=== PATIENT | female | born 1955 | race Caucasian/White ===

== ENCOUNTER 2021-09-07 13:30 | Emergency (ER) | payer MEDICARE, BC, SELFPAY ==
[2021-09-07 13:42] VITALS: BP 160/90; PULSE 84; RESP 16; TEMP 36.6; O2SAT 99
--- NOTE | 2021-09-07 16:05 | ED.LOWEXIN ---
HPI - Extremity Injury (Lower) General Chief Complaint: Extremity Injury, Lower Stated Complaint: Left Leg Injury Time Seen by Provider: 09/07/21 16:05 Source: patient Mode of arrival: ambulatory Limitations: no limitations History of Present Illness HPI Narrative: 66-year-old female presented for complaint of left lower leg pain over the past 3 days. Pain starts mid thigh to calf, is described as dull and tingling sensation in the calf. Worse with weight bearing. No redness, warmth, or swelling to the left calf. Denies known injury. She states she has been unpacking boxes over the past month. Taking ibuprofen which helps for about 4 hours. Denies low back pain or hip pain. Related Data Home Medications Medication Instructions Recorded Confirmed atorvastatin 40 mg tablet 40 mg PO DAILY tablet 05/10/19 09/07/21 cholecalciferol (vitamin D3) 25 2,000 unit PO DAILY cap 05/10/19 09/07/21 mcg (1,000 unit) capsule fluoxetine 20 mg capsule 20 mg PO DAILY cap 05/10/19 09/07/21 aspirin 81 mg tablet,delayed 81 mg PO DAILY 08/02/20 09/07/21 release Allergies Allergy/AdvReac Type Severity Reaction Status Date / Time No Known Allergies Allergy Verified 09/07/21 15:54 Review of Systems Review of Systems: CONSTITUTIONAL: Denies body aches, fever, chills EYES: Denies visual changes ENT: Denies rhinorrhea, congestion CARDIOVASCULAR: Denies chest pain, palpitations, or edema. RESPIRATORY: Denies cough or dyspnea. GASTROINTESTINAL: Denies abdominal pain, nausea, vomiting, or diarrhea. SKIN: Denies rash, itching, or wounds. MUSCULOSKELETAL: Reports left leg pain NEUROLOGIC: Denies headache or weakness to extremities PSYCH: Denies depression or anxiety. All systems reviewed & are unremarkable except as noted in HPI and below PMFSH Past Medical History Medical History (Updated 09/07/21 @ 16:21 by Crystal Hamilton APRN) High cholesterol Psoriasis Family History Family History Mother Family history of chronic obstructive pulmonary disease Family history of malignant neoplasm of breast in first degree relative Sibling Family history of lung cancer Social History Social History Smoking status: Never smoker Alcohol intake: never Comments At time of signature, I have reviewed and agree with nursing past medical, surgical, social and family history unless otherwise noted. Please see nursing chart for further information. There is no relevant family history pertinent to the presenting complaint Exam Narrative: GENERAL: Well-appearing HEAD: Normocephalic, atraumatic. EYES: PERRLA, conjunctivae clear NECK: Supple. CHEST: Speaks in full sentences. No respiratory distress. HEART: Regular rate and rhythm. Normal and equal peripheral pulses. EXTREMITIES: LLE has normal strength and sensation, normal range of motion with flexion/extension/rotation, endorses pain with ambulation and palpation over lateral calf. No edema or ecchymosis, No point tenderness. No open wounds, skin tenting, or obvious deformity; pulse palpable and equal bilaterally, skin warm, dry, pink. Capillary refill less than 3 seconds. SKIN: Warm, dry, no rash. NEURO: Alert and oriented x3. PSYCH: Normal mood and affect Course Course Emergency Course: Patient is aware of diagnosis, understands and agrees to treatment plan. Anticipatory guidance given. Patient agrees to follow-up as directed and is aware of reasons to seek care at the emergency department. Portions of this record may have been created with voice recognition software Level of Care: Express Care Visit Vital Signs Vital signs: Vital Signs Temperature 97.8 F 09/07/21 13:42 Pulse Rate 84 09/07/21 13:42 Respiratory Rate 16 09/07/21 13:42 Blood Pressure 160/90 H 09/07/21 13:42 Pulse Oximetry 99 09/07/21 13:42 Temperature 97.8 F 09/07/21 13:42
== END 2021-09-07 16:25 | disposition home or self-care (01) ==
PROVIDERS: Emergency Provider Nurse Practitioner Family
DX: M79.662 Pain in left lower leg (principal); E78.00 Pure hypercholesterolemia, unspecified; Z79.82 Long term (current) use of aspirin
CPT/HCPCS: 99213; G0463

== ENCOUNTER 2023-04-27 12:51 | Emergency (ER) | payer MEDICARE, BC, SELFPAY ==
[2023-04-27 13:14] VITALS: BP 132/85; PULSE 68; RESP 20; TEMP 36.8; O2SAT 98
--- NOTE | 2023-04-27 14:45 | ED.GENADULT ---
HPI - General Adult General Chief complaint: Upper Respiratory Infection Stated complaint: headache/cough/burning chest Source: patient Mode of arrival: ambulatory Limitations: no limitations History of Present Illness HPI narrative: Patient presents for evaluation of sick symptoms for last 2 days. Symptoms include headache, sinus congestion, sore throat only when coughing, a nonproductive cough and a burning sensation in her chest wall she coughs. No fever, chills, nausea, vomiting or diarrhea. No recent sick contacts to her knowledge. She has tried ibuprofen for her symptoms. She does not smoke. She had COVID twice in the past and current symptoms do not feel consistent with her previous bouts of COVID. Related Data Home Medications Medication Instructions Recorded Confirmed atorvastatin 40 mg tablet 40 mg PO DAILY 05/10/19 04/27/23 cholecalciferol (vitamin D3) 25 2,000 unit PO DAILY 05/10/19 04/27/23 mcg (1,000 unit) capsule fluoxetine 20 mg capsule 20 mg PO DAILY 05/10/19 04/27/23 aspirin 81 mg tablet,delayed 81 mg PO DAILY 08/02/20 04/27/23 release (Adult Low Dose Aspirin) Allergies Allergy/AdvReac Type Severity Reaction Status Date / Time No Known Allergies Allergy Verified 04/27/23 13:29 Review of Systems Review of Systems: CONSTITUTIONAL: Denies fever, chills, or sweats. EYES: Denies visual changes, redness, or discharge. ENT: Reports sinus congestion, sore throat only when coughing. Denies otalgia or sinus drainage. CARDIOVASCULAR: Denies chest pain, palpitations, or edema. RESPIRATORY: Reports cough and pleuritic burning in her chest. Denies chest pain per se. Denies shortness of breath. GASTROINTESTINAL: Denies abdominal pain, nausea, vomiting, or diarrhea. GENITOURINARY: Denies dysuria or hematuria. SKIN: Denies rash or itching. MUSCULOSKELETAL: Denies back pain, joint pain, or myalgia. NEUROLOGIC: Reports headache. numbness, dizziness, or weakness. PSYCHIATRIC: Denies anxiety or depression. [facility] Past Medical History Medical History (Updated 04/27/23 @ 15:53 by Brice Ospina, CAROLINE, ) High cholesterol Psoriasis Surgical History Surgical History History of cholecystectomy History of hysterectomy Family History Family History Mother Family history of chronic obstructive pulmonary disease Family history of malignant neoplasm of breast in first degree relative Sibling Family history of lung cancer Social History Social History Smoking status: Never smoker Substance use: never Gender identity (if verbalized by the patient): Female Spiritual care concerns: No Exam Narrative: GENERAL: Well-appearing, well-nourished, and in no acute distress. HEAD: Normocephalic, atraumatic. EYES: PERRLA and EOMI. ENT: Nares clear, no rhinorrhea or epistaxis. Mucous membranes moist. Oropharynx without tonsillar hypertrophy exudate or other lesions. Bilateral TMs pearly cochran nonbulging NECK: Supple. No adenopathy or masses. No carotid bruits or JVD CHEST: Clear to auscultation. No respiratory distress. No wheezes rales or rhonchi HEART: Regular rate and rhythm. No murmur heard. Normal peripheral pulses. ABDOMEN: Soft, nontender, nondistended, normal active bowel sounds. EXTREMITIES: Normal range of motion. No edema. SKIN: Warm, dry, no rash. NEURO: No focal deficits. Alert and oriented x3. PSYCH: Normal mood and affect. Course Course Emergency Course: This is a 68-year-old female who presented for evaluation of sick symptoms. COVID and flu were negative. Strep positive. Will treat with amoxicillin. Increase hydration. Follow up with primary provider. [id number] agents for symptom management. Go to the ER for worsening symptoms. Patient in agreement with plan of care. Level
== END 2023-04-27 16:01 | disposition home or self-care (01) ==
PROVIDERS: Emergency Provider Nurse Practitioner; PCP Nurse Practitioner Family
DX: J02.0 Streptococcal pharyngitis (principal); Z20.822 Contact with and (suspected) exposure to COVID-19; E78.00 Pure hypercholesterolemia, unspecified; L40.9 Psoriasis, unspecified; Z79.82 Long term (current) use of aspirin
CPT/HCPCS: 87426; 87804; 87880; 99213; C9803; G0463

== ENCOUNTER 2024-07-28 14:00 | Emergency (ER) | payer MEDICARE, SELFPAY ==
--- NOTE | ~2024-07-28 | XR_ITS ---
EXAMINATION: XR chest 2V DATE: 07/28/2024 16:28 INDICATION: Cough and shortness of breath. TECHNIQUE: Frontal and lateral views of the chest were obtained. COMPARISON: None. FINDINGS: There is mild atelectasis in lingula. No pleural effusion or pneumothorax. The heart size i s normal. Surgical clips in the right upper quadrant are likely from cholecystectomy. IMPRESSION: 1. Mild atelectasis in lingula. Reviewed, dictated and finalized at location A. RTAINMENT REPORTER
[2024-07-28 14:14] VITALS: BP 137/57; PULSE 90; RESP 20; TEMP 37.9; O2SAT 98
--- OUTSIDE RECORDS SUMMARY | 2024-07-28 14:57 | XMS_ITS | Continuity of Care Document ---
Author Organization [facility] Address [address] [place] [phone] Phone Care Team Providers Care Photo Booth Operator Name Role Phone Shila Berg Unavailable Unavailable Allergies, Adverse Reactions, Alerts Substance Reaction Status Criticality No Known allergies Medications Medication Instructions Dosage Effective Dates (start - stop) Status Comments Lipitor 40 mg tablet take 1 tablet by or al route every day 40 MG - Active Aspir-81 81 mg tablet,delayed release take 1 tablet by oral route every day - Active Prozac 20 mg capsule take 1 capsule by o ral route every day in the morning 20 MG - Active Procedures Procedure Date Refraction New Comprehensive Exam Advance Directives Directive Yes / No Effective Date File Name No Information Encounters Encounter Description Practice Location Reason(s) For Visit Diagnoses Date Provider Providers Copied on Encounter [facility], [address] [place], [place], [id number] , tel:[phone] [facility] MD decreased vision (chief complaint) blurry vision (chief complaint) PresbyopiaHordeolum internum Aug- [address] [place], [place], [id number] , [place]. tel:[phone] Referring Provider: Bobo Adler, [address] [facility], [place], [address]. tel:[phone] Family History Family Member Type Diagnosis Age At Onset Father Problem (finding) Cataracts Mother Problem (finding) Cancer Father Problem (finding) Diabetes mellitus Mother Problem (finding) Macular Degeneration Payers Payer name Insurance type Covered republican ID Authoriza tion(s) No Information Social History Type Description Quantity Date Captured Comments Alcohol Use Details 1 drink rarely Caffeine Use Details No Tobacco Use Status No Information Smoking Status Never smoker Sex Female Chief Complaint And Reason For Visit From encounter dated '09/16/2013 16:00'. decreased vision (chief complaint) blurry vision (chief complaint) Plan Of Treatment Date Type Action Status Goal Tobacco cessation counseling completed History Of Present Illness Encounter Date Complaint History Of Prese nt Illness No Information Instructions Date Instruction Additional Infor carlee - Return in 1 year w mara Berg, OD for Complete Exam. Related to Presbyopia Presbyopia s/p LASIK OU / LASIK enhance OD - New glasses Rx dispensed. Related to Presbyopia Meibomitis Gland Dys function OU--mild - AT's prn OU. 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
--- OUTSIDE RECORDS SUMMARY | 2024-07-28 14:57 | XMS_ITS | Encounter Summary ---
Author Organization [facility] Healthcare Address [address] [place] [address] Care Team Providers Care Banker Mason Name Role Phone Rivera Park MD Primary Care Provider [phone] Encounter Details Date Type Department Care Team (Late st Contact Info) Description 07/27/2024 11:45 AM NATIONAL SALES DIRECTOR Lab [facility] Laboratory [address] [place] [phone] Encounter for Medicare annual wellness exam Social History Tobacco Use Types Packs/Day Years Used Date Smoking Tobacco: Never AUDIT-C Answer Date Recorded Q1: How often do you have a drink containing alc ohol? Monthly or less 07/28/2023 Q2: How many drinks containi ng alcohol do you have on a typical day when you are drinking? 1 or 2 07/28/2023 Q3: How often do you have si x or more drinks on one occasion? Never 07/28/2023 PHQ-2 Answer Date Recorded PHQ-2 Total Score (If total score is 3 or more points, staff should administer the PHQ-9) 0 07/28/2023 Personal Safety Answer Date Recorded Getting School Help Needed Not on file 01/12 Comments No Sex and Gender Information Value Date Recorded Sex Assigned at Not on file Legal Sex Female 2:29 PM NATIONAL SALES DIRECTOR Gender Identity Not on file Sexual Orientation Not on file documented as of this encounter Plan of Treatment Not on file documented as of this encounter Procedures Procedure Name Priority Date/Time Associated Diagnosis Comments EGFR Routine 07/27/2024 11:40 AM NATIONAL SALES DIRECTOR Encounter for Medicare annual wellness exam DIFFERENTIAL AUTO Routine 07/27/2024 11: 40 AM NATIONAL SALES DIRECTOR Encounter for Medicare annual wellness exam CBC WITH AUTO DIFFERENTIAL Routine 07/27/2024 11:40 AM NATIONAL SALES DIRECTOR Encounter for Medicare annual wellness exam LIPID PANEL Routine 07/27/2024 11:40 AM NATIONAL SALES DIRECTOR Encounter for Medicare annual wellness exam COMPREHENSIVE METABOLIC PANEL Routine 07/27/2024 11:40 AM NATIONAL SALES DIRECTOR Encounter for Medicare annual wellness exam documented in this encounter Results * eGFR (07/27/2024 11:40 AM NATIONAL SALES DIRECTOR) eGFR 67 >=60 mL/min/1. 73 m2 Comment: Interpretive Data Reference Interval Normal >/= 90 mL/min/1.73m2 Mildly decreased* 60 - 89 mL/min/1.73m2 Mildly to moderately decreased 45 - 59 mL/min/1.73m2 Moderately to severely decreased 30 - 44 mL/min/1.73m2 Severely decreased 15 - 29 mL/min/1.73m2 Kidney Failure < 15 mL/min/1.73m2 *Relative to young adult level Estimated glomerular filtration rate is determined by the 2020 CKD-EPI equation recommended by the National Kidney Foundation (A Unifying Approach to GFR Estimation: Recommendations of the NKF-ASK Task Force on Reassessing the Inclusion of Race in Diagnosing Kidney Disease, JASN 2020). The CKD-EPI equation should not be used for patients with unstable renal function and has not been validated in children and those over 70. Current interpretive data was last reviewed 2021. Testing performed by: [facility], [address] [place] [address], [place]., [address] Blood 07/27/2024 11:4 0 AM NATIONAL SALES DIRECTOR 07/27/2024 5:45 PM NATIONAL SALES DIRECTOR us Blanca Rico NP LAB BLOOD ORDERABLES Final Result [facility] [place] [address] [facility] ([place], [place]) Department [place] [address] * Differential, auto (07/27/2024 11:40 AM NATIONAL SALES DIRECTOR) Neutrophil abs 4.5 1.5 - 6.5 K/cumm Comment:Testing performed by : [facility], [address] [place] [address]., [address] Imm gran abs 0.0 0.0 - 0.1 K/cumm [facility] ([place]) Comment:Testing performed by : [address], [address] Lymphocyte abs 2.3 0.8 - 3.3 K/cumm [facility] ([place]) Comment:Testing performed by : [facility], [address] [place] [address], [address] Monocyte abs 0.6 0.2 - 0.8 K/cumm [facility] ([place]) Comment:Testing performed by : [address], [address] Eosinophil abs 0.2 0.0 - 0.5 K/cumm [facility] ([place]) Comment:Testing performed by : [address], [address] Basophil abs 0.1 0.0 - 0.1 K/cumm [facility] ([place]) Comment:Testing performed by : [address], [address] Neutrophil pct 59.5 % [facility] ([place]) Comment: Interpretive Data Percent cell count reference ranges are not reported, since discordance with absolute values may lead to misinterpretation of CBC data. Current Interpretive Data was last revised on 2017. Testing performed by: [address], [address] Imm gran pct 0.3 % [facility] ([place]) Comment: Interpretive Data Percent cell count reference ranges are not reported, since discordance with absolute values may lead to misinterpretation of CBC data. Current Interpretive Data was last revised on 2017. Testing performed by: [address], [address] Lymphocyte pct 29.7 % [facility] ([place]) Comment: Interpretive Data Percent cell count reference ranges are not reported, since discordance with absolute values may lead to misinterpretation of CBC data. Current Interpretive Data was last revised on 2017. Testing performed by: [facility], [address] [place] [address]., [address] Monocyte pct 7.6 % [facility] ([place]) Comment: Interpretive Data Percent cell count reference ranges are not reported, since discordance with absolute values may lead to misinterpretation of CBC data. Current Interpretive Data was last revised on 2017. Testing performed by: [facility], [address] [place] [address]., [address] Eosinophil pct 2.2 % [facility] ([place]) Comment: Interpretive Data Percent cell count reference ranges are not reported, since discordance with absolute values may lead to misinterpretation of CBC data. Current Interpretive Data was last revised on 2017. Testing performed by: [facility], [address] [place] [address]., [address] Basophil pct 0.7 % [facility] ([place]) Comment: Interpretive Data Percent cell count reference ranges are not reported, since discordance with absolute values may lead to misinterpretation of CBC data. Current Interpretive Data was last revised on 2017. Testing performed by: [address] [address] Blood 07/27/2024 11:4 0 AM NATIONAL SALES DIRECTOR 07/27/2024 5:28 PM NATIONAL SALES DIRECTOR us Blanca Rico HUB LEAD LAB BLOOD ORDERABLES Final Result [facility] ([place]) 1 [facility] Department [place] [address] * CBC with auto differential (07/27/2024 11:40 AM NATIONAL SALES DIRECTOR) WBC 7.6 3.8 - 9.9 K/cumm Comment:Testing performed by : [address] [address] Hgb 14.1 11.9 - 15.5 g/dL [facility] ([place]) Comment:Testing performed by : [address], [address] Hct 43.3 35.6 - 45.5 % [facility] ([place]) Comment:Testing performed by : [facility], [address] [place] [address], [address] Plt 226 150 - 400 K/cumm [facility] ([place]) Comment:Testing performed by : [address], [address] MPV 10.5 9.1 - 12.3 fL [facility] ([place]) Comment:Testing performed by : [address], [address] RBC 4.52 3.90 - 5.20 M/cumm [facility] ([place]) Comment:Testing performed by : [address], [address] MCV 95.8 81.3 - 96.4 fL [facility] ([place]) Comment:Testing performed by : [address], [address] MCH 31.2 27.1 - 33.3 pg [facility] ([place]) Comment:Testing performed by : [address], [address] MCHC 32.6 32.3 - 35.7 g/dL [facility] ([place]) Comment:Testing performed by : [address], [address] RDW CV 12.3 11.1 - 14.9 % [facility] ([place]) Comment:Testing performed by : [address], [address] RDW SD 42.5 35.7 - 48.1 fL [facility] ([place]) Comment:Testing performed by : [address], [address] NRBC abs 0.00 0.00 - 0.01 K/cumm [facility] ([place]) Comment:Testing performed by : [address], [address] Blood 07/27/2024 11:4 0 AM NATIONAL SALES DIRECTOR 07/27/2024 5:28 PM NATIONAL SALES DIRECTOR Blanca Rico HUB LEAD LAB BLOOD ORDERABLES Final Result [facility] ([place] 1 [facility] Department [place] [address] * Comprehensive metabolic panel (07/27/2024 11:40 AM NATIONAL SALES DIRECTOR) Sodium 142 135 - 145 mmol/L Comment:Testing performed by : [facility], [address] [place] [address]., [address] Potassium, pl 4.4 3.3 - 4.9 mmol/L [facility] ([place]) Comment:Testing performed by : [facility], [address] [place] [address]., [address] Chloride 102 97 - 110 mmol/L [facility] ([place]) Comment:Testing performed by : [facility], [address] [place] [address]., [address] CO2 27 22 - 32 mmol/L [facility] ([place]) Comment:Testing performed by : [address], [address] Anion gap 13 2 - 15 mmol/L [facility] ([place]) Comment:Testing performed by : [facility], [address] [place] [address], [address] BUN 15 6 - 25 mg/dL [facility] ([place]) Comment:Testing performed by : [facility], [address] [place] [address]., [address] Creatinine 0.92 0.60 - 1.10 mg/dL [facility] ([place]) Comment:Testing performed by : [address], [address] Glucose 85 70 - 199 mg/dL [facility] ([place]) Comment: Interpretive Data Fasting glucose >/= 126 mg/dl is diagnostic for diabetes. Fasting is defined as no caloric intake for at least 8 hours. Fasting glucose between 100 mg/dl to 125 mg/dl is diagnostic of prediabetes. In a patient with classic symptoms of hyperglycemia or hyperglycemic crisis, a random glucose >/= 200 mg/dl is diagnostic for diabetes. In the absence of unequivocal hyperglycemia, results should be confirmed by repeat testing. The classification and Diagnosis of Diabetes Diabetes Care 202; 46: S19-S40. Current interpretive data was last revised 2022. Testing performed by: [address], [address] Calcium 9.7 8.5 - 10.3 mg/dL [facility] ([place]) Comment:Testing performed by : [facility], [address] [place] [address], [address] Bilirubin, total 0.6 0.1 - 1.2 mg/dL [facility] ([place]) Comment:Testing performed by : [facility], [address] [place] [address], [address] Protein, pl 7.0 6.5 - 8.5 g/dL [facility] ([place]) Comment:Testing performed by : [facility], [address] [place] [address], [address] Albumin 4.2 3.5 - 5.0 g/dL [facility] ([place]) Comment:Testing performed by : [address], [address] Alk phos 130 40 - 130 Units/L [facility] ([place]) Comment:Testing performed by : [address], [address] ALT 20 7 - 45 Units/L [facility] ([place]) Comment:Testing performed by : [facility], [address] [place] [address], [address] AST 30 10 - 45 Units/L [facility] ([place]) Comment:Testing performed by : [address], [address] Blood 07/27/2024 11:4 0 AM NATIONAL SALES DIRECTOR 07/27/2024 5:28 PM NATIONAL SALES DIRECTOR Blanca Rico NP LAB BLOOD ORDERABLES Final Result [facility] ([place]) 1 [facility] Department [place] [address] * Lipid panel (07/27/2024 11:40 AM NATIONAL SALES DIRECTOR) Cholesterol 186 30 - 199 mg/dL Comment: Interpretive Data Ages < or = 19 years Acceptable: <170 mg/dL Borderline high: 170-199 mg/dL High: >or= 200 mg/dL Ages > or = 20 years Desirable: <200 mg/dL Borderline high: 200-239 mg/dL High: >or= 240 mg/dL Literature References: 1. Expert Panel on Integrated Guidelines for Cardiovascular Health and Risk Reduction in Children and Adolescents. Pediatrics 2011;128:S213 2. NCEP Expert Panel. Circulation 2004;110:227 Current Interpretive Data was last revised on 2018. Testing performed by: [facility], [address] [place] [address]., [address] Triglycerides 131 <=149 mg/dL [facility] ([place]) Comment: Interpretive Data Ages < or = 9 years Acceptable: <75 mg/dL Borderline high: 75-99 mg/dL High: >or= 100 mg/dL Ages 10 to 20 years Acceptable: <90 mg/dL Borderline high: 90-129 mg/dL High: >or= 130 mg/dL Ages > or = 20 years Desirable: <150 mg/dL Borderline high: 150-199 mg/dL High: 200-499 mg/dL Very high: >or= 499 mg/dL Literature References: 1. Expert Panel on Integrated Guidelines for Cardiovascular Health and Risk Reduction in Children and Adolescents. Pediatrics 2011;128:S213 2. NCEP Expert Panel. Circulation 2004;110:227 Current Interpretive Data was last revised on 2018. Testing performed by: [facility], [address] [place] [address]., [address] HDL 60 >=40 mg/dL [facility] ([place]) Comment: Interpretive Data Ages < or = 19 years Acceptable: >45 mg/dL Borderline low: 40-45 mg/dL Low: <40 mg/dL Ages > or = 20 years Desirable: >or= 60 mg/dL Low: <40 mg/dL Literature References: 1. Expert Panel on Integrated Guidelines for Cardiovascular Health and Risk Reduction in Children and Adolescents. Pediatrics 2011;128:S213 2. NCEP Expert Panel. Circulation 2004;110:227 Current Interpretive Data was last revised on 2018. Testing performed by: [facility], [address] [place] [address]., [address] LDL, calculated 103 <=129 mg/dL [facility] ([place]) Comment: Interpretive Data Ages < or = 19 years Acceptable: <110 mg/dL Borderline high: 110-129 mg/dL High: >or= 130 mg/dL Ages > or = 20 years Optimal: <100 mg/dL Near optimal: 100-129 mg/dL Borderline high: 130-159 mg/dL High: >160 mg/dL Calculated using the Tahir LDL-C estimating equation. This equation was implemented on 2024. Prior to this date LDL-C was estimated using the Friedewald equation. Literature References: 1. Expert Panel on Integrated Guidelines for Cardiovascular Health and Risk Reduction in Children and Adolescents. Pediatrics 2011;128:S213 2. NCEP Expert Panel. Circulation 2004;110:227 3. Tahir Martinez et al. ERICA Cardiol. 2020 October 21;5(5):540-548. doi: 10.1001/jamacardio.2020.0013 Current Interpretive Data was last revised on 2024. Testing performed by: [address] [address] Non-HDL Cholesterol 126 mg/dL [facility] ([place]) Comment: Interpretive Data Ages < or = 19 years Acceptable: <120 mg/dL Borderline high: 120-144 mg/dL High: >145 mg/dL Ages > or = 20 years When triglycerides are >200 mg/dL, Non-HDL cholesterol is a secondary target of therapy with treatment goals that are 30 mg/dL greater than the LDL cholesterol target. Literature References: 1. Expert Panel on Integrated Guidelines for Cardiovascular Health and Risk Reduction in Children and Adolescents. Pediatrics 2011;128:S213 2. NCEP Expert Panel. Circulation 2004;110:227 Current Interpretive Data was last revised on 2018. Testing performed by: [address] [address] Chol/HDL ratio 3 [facility] ([place]) Comment:Testing performed by : [facility], [address] [place] [address]., [address] Blood 07/27/2024 11:4 0 AM NATIONAL SALES DIRECTOR 07/27/2024 5:28 PM NATIONAL SALES DIRECTOR us Blanca Rico NP LAB BLOOD ORDERABLES Final Result [facility] ([place]) 1 [facility] Department [place] [address] documented in this encounter Visit Diagnoses Diagnosis Encounter for Medicare annual wellness exam documented in this encounter Care Teams Banker Mason Relationship Specialty Start Date End Date Rivera Park MD [address] [place] [address] PCP - General Family Medicine 11/19/22 documented as of this encounter
--- OUTSIDE RECORDS SUMMARY | 2024-07-28 14:57 | XMS_ITS | Clinical Summary ---
Author Organization [facility] Address [address] [place] [address] Care Team Providers Care Unit Leader Name Role Phone Joe Daniel MD Primary Care Provider [phone] Family History Medical History Relation Comments Breast Cancer Mother Relation Status Comments Mother Social History Tobacco Use Types Packs/Day Years Used Date Smoking Tobacco: Never Assessed Comments Unknown Sex and Gender Information Value Date Recorded Sex Assigned at Not on file Legal Sex Female 7:14 PM CDT Gender Identity Not on file Sexual Orientation Not on file Plan of Treatment Health Maintenance Due Date Last Done Comments Colorectal Cancer Screening Colonoscopy (10 Years) 1955 Hepatitis C 1973 DTaP, Tdap and Td Vaccines ( 1 - Tdap) 1974 Zoster Vaccines (1 of 2) 2005 Dexa Scan (General) 02/13/2020 Pneumococcal Vaccine: 65+ Ye ars (1 of 1 - PCV) 02/13/2020 Mammogram Screening 06/08/2021 06/08/2019 COVID-19 Vaccine ( - 2023-2 5 season) 2024 Influenza Adult (#1) 2024 RSV Immunization or 60+ Years (1 - 1-dose 75+ series) 2030 Meningococcal B Vaccine Aged Out No l onger eligible based on patient's age to complete this topic Meningococcal Vaccine Aged Out No modesta kaye eligible based on patient's age to complete this topic RSV Immunizations Under 20 Months Aged Out No longer eligible based on patient's age to complete this topic Procedures Procedure Name Priority Date/Time Associated Diagnosis Comments MG SCREENING W MARY KAY SAMIR DIGI Routine 06/08/2019 3:20 PM NURSING SERVICES MANAGER Encounter for screening mammogram for malignant neoplasm of breast from Last 3 Months or Most Recently Relevant to Health Maintenance Results * MG SCREENING W MARY KAY SAMIR DIGI (06/08/2019 3:20 PM NURSING SERVICES MANAGER) Anatomical Region Laterality Modality Breast Bilateral Mammography 06/15/2019 10:5 2 AM NURSING SERVICES MANAGER Narrative 06/15/2019 11:04 AM NURSING SERVICES MANAGER IMAGING STUDIES: MG SCREENING W MARY KAY SAMIR DIGI DATE: 06/08/2019 3:05 PM INDICATION: screening. COMPARISON: 06/13/2017. FINDINGS: Bilateral CC and MLO views, digital with CAD. 2-D with 3-D tomosynthesis. Breast compostition: Category B - There are areas of scattered fibroglandular density. No suspicious microcalcification, worrisome mass or evidence of architectural distortion. No skin thickening or nipple retraction. Benign microcalcifications. CONCLUSION: No mammographic evidence of malignancy. BI-RADS Category 2 - benign findings. Routine screening mammography recommended MQSA BI-RADS Categories: Category 0 - needs additional imaging evaluation. Category 1 - negative. Category 2 - benign findings. Category 3 - probably benign findings, but short interval follow-up is recommended. Category 4 - suspicious abnormality and biopsy should be considered though the lesion may well be benign. Category 5 - highly suggestive of malignancy and appropriate action should be taken. A) A negative report should not delay a biopsy if a dominant or clinically suspicious mass is present. B) Adenosis and dense breasts may obscure an underlying neoplasm. C) Study interpreted with computer aided detection. Interpreted By: Rich Kelley, 06/15/2019 10:52 AM us Sailaja Lopez PA-C MAMMO Final Resu lt from Last 3 Months or Most Recently Relevant to Health Maintenance Insurance [facility] Care Teams Unit Leader Relationship Specialty Start Date End Date Joe Daniel MD [address] [place] [address] PCP - General INTERNAL MEDICINE 05/29/19
--- OUTSIDE RECORDS SUMMARY | 2024-07-28 14:57 | XMS_ITS | Patient Health Summary ---
Author Organization [facility] Address [address] [place] [address] Care Team Providers Care Criminology Professor Name Role Phone Unavailable Primary Care Provider Unavailabl e Note from [facility],non-owned Affiliates and Associated Physician Practices is amultiple site organization consisting of ambulatory clinics and hospital sitesin [place], [place], [place] and [place]. This disclosure is being madepursuant to the Care Everywhere program and may not contain all information available regarding this patient. Last updated 18.[facility] Social History Tobacco Use Types Packs/Day Years Used Date Smoking Tobacco: Never Assessed Sex and Gender Information Value Date Recorded Sex Assigned at Not on file Gender Identity Not on file Sexual Orientation Not on file Procedures * DERMATOPATHOLOGY(Performed 06/26/2020) Results * DERMATOPATHOLOGY (06/26/2020 12:00 AM VIBRATION TECHNICIAN) Case Report Dermatopathology Report Case: [id number] Authorizing Provider: Dimitris Artis MD Collected: 06/26/2020 12:00 AM Ordering Location: [facility] Lab Received: 06/27/2020 02:39 PM Pathologist: Debra Gold MD Specimens: A) - Skin, left upper arm superior B) - Skin, left upper arm inferior 2:36 PM VIBRATION TECHNICIAN DERMATOPATHOLOGY LABORATORY Final Diagnosis Specimen A. 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 SKIN, left upper arm inferior: PRURIGO NODULARIS (L28.1) 2:36 PM [facility] DERMATOPATHOLOGY [facility]ORATORY Clinical History A: Prurigo vs SK vs SCCA. Path # [id number]. B: Prurigo vs SK vs SCCA. Path # [id number]. 1 2:36 PM [facility] DERMATOPATHOLOGY [facility]OR[facility]ORY Gross Description Specimen A: Received is one formalin filled container labeled with the patient's name and designated left upper arm superior. The specimen consists of a shave biopsy measuring [id number]. Jar 0. Specimen B: Received is one formalin filled container labeled with the patient's name and designated left upper arm inferior. The specimen consists of a shave biopsy measuring [id number]. Jar 0. 1 2:36 PM [facility] DERMATOPATHOLOGY [facility]ORY Microscopic Description Specimen A. SKIN, left upper arm superior: Sections show hyperkeratosis, papillomatosis, hypergranulosis, and acanthosis. These histological findings can be seen in a verruca vulgaris or a seborrheic keratosis. There is also fibrosis of the papillary dermis associated with a superficial perivascular lymphohistiocytic infiltrate. Specimen B. SKIN, left upper arm inferior: There is a dome-shaped portion of skin with psoriasiform epidermal hyperplasia, compact hyperkeratosis, and fibrosis of the papillary dermis associated with a superficial perivascular lymphohistiocytic infiltrate. 1 2:36 PM [facility] DERMATOPATHOLOGY [facility]ORATORY Disclaimer An external and internal positive and negative controls are appropriate for the histochemical, immunohistochemical and immunofluorescence stain(s) in this case (if any), except where stated explicitly. The performance characteristics of the stain(s) cited in this report were developed and its performance characteristic determined by the Dermatopathology Laboratory at [facility], directed by Dr. Zina Mohan. These tests need not be, and therefore are not, approved by the [place] Food and Drug Administration. The tests are used for clinical purposes. Billing Codes Specimen Charges Stain Charges 27300 13745 1 1 1 2:36 PM VIBRATION TECHNICIAN DERMATOPATHOLOGY LABORATORY Embedded Images 1 2:36 PM [facility] DERMATOPATH[facility]Y [facility]ORY Pathology/Cytology TISSUE SPECIMEN FROM SKIN / Unknown 06/26/2020 06/27/2020 2:39 PM VIBRATION TECHNICIAN Miscellaneous samples (specimen) TISSUE SPECIMEN FROM SKIN / Unknown 06/26/2020 06/27/2020 2:39 PM VIBRATION TECHNICIAN Dimitris Artis MD LAB - PATHOLOGY/CYTO LOGY ORDERABLES DERMATOPATHOLOGY LABORATORY [facility] - Department of Dermatology [facility] [address] [place] [address], [address] Floor [address] [phone]
--- OUTSIDE RECORDS SUMMARY | 2024-07-28 14:57 | XMS_ITS | Clinical Summary ---
Author Organization [address] lt Address [address] [place] [address] Care Team Providers Care Medicine Assistant Name Role Phone Rivera Park MD Primary Care Provider [phone] Allergies No known active allergies Medications Skyrizi 150 mg/mL pen injector Inject 150 mg as directed as needed Every 12 weeks 08/13/19 22 Active atorvastatin (LIPITOR) 40 mg tabletIndications: Mixed hyperlipidemia Take 1 tablet (40 mg total) by mouth daily 90 tablet 3 07/28/19 24 Active busPIRone (BUSPAR) 5 mg tabletIndications: Generalized Anxiety Disorder Take 1 tablet (5 mg total) by mouth 3 (three) times a day 270 tablet 3 07/28/19 24 Active FLUoxetine (PROzac) 40 mg capsuleIndications :Mild episode of recurrent major depressive disorder (HCC) Take 1 capsule (40 mg total) by mouth daily 90 capsule 3 07/28/19 24 Active metoprolol XL (TOPROL-XL) 50 mg extended release tablet Take 1 tablet (50 mg total) by mouth daily 90 tablet 3 01/13/20 24 025 Active ibuprofen (ADVIL,MOTRIN) 800 mg tabletIndications: Sciatica of right side TAKE 1 TABLET BY MOUTH 3 TIMES DAILY 270 tablet 3 06/25/19 25 Active ALPRAZolam (XANAX) 0.25 mg tablet TAKE 1 TABLET BY MOUTH AT NIGHT NEEDED FOR ANXIETY 30 tablet 06/29/19 25 Active Belsomra 10 mg tablet Take 1 tablet by mouth nightly 90 tablet 06/29/19 25 Active ALPRAZolam (XANAX) 0.25 mg tablet TAKE 1 TABLET BY MOUTH AT NIGHT NEEDED FOR ANXIETY 30 tablet 03/25/20 24 025 Discontinued suvorexant (Belsomra) 10 mg tablet Take 1 tablet (10 mg total) by mouth nightly 90 tablet 03/31/20 24 025 Discontinued Active Problems Problem Noted Date Diagnosed Date Palpitations 01/14/2024 Essential hypertension 01/14/2024 Need for pneumococcal 20-valent conjugate vaccin ation 07/28/2023 Encounter for Medicare annual wellness exam 10/2023 Assessment & Plan (07/28/2023 1:58 PM SENIOR WINDOWS SYSTEMS ENGINEER): Visit preventive in nature. We reviewed medications, chronic conditions, risk factors, lifestyle recommendations. Reviewed immunization recommendations. Follow-up in 1 year for annual wellness. Class 1 obesity due to exces s calories with serious comorbidity and body mass index (BMI) of 32.0 to 32.9 in adult 07/28/2023 Assessment & Plan (07/28/2023 1:58 PM SENIOR WINDOWS SYSTEMS ENGINEER): Reviewed lifestyle and exercise recommendations. Mild episode of recurrent major depressive disor olivia 07/28/2023 Assessment & Plan (07/28/2023 1:59 PM SENIOR WINDOWS SYSTEMS ENGINEER): Reports well controlled on fluoxetine and BuSpar. Very rare alprazolam. No changes. Will continue to monitor. Mixed hyperlipidemia 12/17/2022 Assessment & Plan (07/28/2023 1:57 PM SENIOR WINDOWS SYSTEMS ENGINEER): Last lipid panel reviewed. Will continue atorvastatin. Reviewed lifestyle recommendations. Will continue to monitor. Encounters Date Type Department Care Team Description 07/28/2024 Nurse Triage [facility] [address] [address] Rivera Park MD 07/27/2024 11:45 AM SENIOR WINDOWS SYSTEMS ENGINEER Lab [facility] [address] [place] [address] Encounter for Medicare annual wellness exam 07/23/2024 Telephone [facility] [address] [place] [place] [address] Evelina Perdomo MA Labs Requested for Appointment from Last 3 Months Immunizations Name Administration Dates Next Due Influenza, Quadrivalent, Hig h Dose, Preservative Free, Intrr 02/26/2023,04/17/2022 Influenza, Quadrivalent, Rec ombinant, Egg Free, Preservative Free, Intramuscular 03/29/2020 Influenza, Quadrivalent, Spl it, Preservative Free, Intramuscular 04/07/2019,04/05/2018 Influenza, Unspecified 03/23/2021,03/23/2020 Pfizer Sars-Cov-2 Bivalent Vaccination (12+ YRS) 05/15/2021 Pneumococcal Conjugate PCV 13 03/21/2020 Pneumococcal Conjugate Pcv20 07/28/2023 ZOSTER Recombinant 03/21/2020 Surgical History Surgery Date Site/Laterality Comments HYSTERECTOMY CARPAL TUNNEL RELEASE DILATION AND CURETTAGE OF UTERUS TONSILLECTOMY ABDOMINAL SURGERY 06/25/2022 liposuction Medical History Medical History Date Comments Hyperlipidemia Depression Plaque psoriasis Colitis 12/27/2022 Family History Medical History Relation Name Comments COPD Daughter long cancer Daughter COPD Father Skin cancer Father Breast cancer Mother COPD Mother Relation Name Status Comments Daughter Father Mother Social History Tobacco Use Types Packs/Day Years Used Date Smoking Tobacco: Never Tobacco Cessation:Counseling Given: No AUDIT-C Answer Date Recorded Q1: How often [...] on file Legal Sex Female 2:29 PM SENIOR WINDOWS SYSTEMS ENGINEER Gender Identity Not on file Sexual Orientation Not on file Obstetrics History Para Term AB IAB SAB Ectopic Multiple Livin g Live Births 3 3 3 Date Outcome GA Total Labor Labor/2nd/3rd Weight Sex Type Anes PTL Ashley A1 A5 Name Clin Term Term Term Last Filed Vital Signs Vital Sign Reading Time Taken Comments Blood Pressure 147/82 01/13/2024 2:31 PM CDT Pulse 64 01/13/2024 2:31 PM CDT Temperature 36.8 C (98.3 F) 07/28/2023 1:25 PM SENIOR WINDOWS SYSTEMS ENGINEER Respiratory Rate 18 07/28/2023 1:25 PM SENIOR WINDOWS SYSTEMS ENGINEER Oxygen Saturation 96% 07/28/2023 1:25 PM SENIOR WINDOWS SYSTEMS ENGINEER Inhaled Oxygen Concentration - - Weight 78.5 kg (173 lb) 01/13/2024 2:31 PM CDT Height 157.5 cm (5' 2 ) 01/13/2024 2:31 PM CDT Body Mass Index 31.64 01/13/2024 2:31 PM CDT Plan of Treatment Health Maintenance Due Date Last Done Comments Colon Cancer Screening-Colonoscopy 1955 Hepatitis C Screening 1955 DTaP/Tdap/Td Vaccine (1 - Tdap) 1966 Hepatitis B Screening 1973 Zoster Vaccine (2 of 2) 05/16/2020 03/21/2020 Covid-19 Vaccine (3 - 2023-2 5 season) 2024 05/15/2021, 08/25/2020 Influenza Vaccine (#1) 2024 , 04/17/2022, 03/23/2021, Additional history exists Breast Cancer Screening-Mammogram 06/28/2024 06/28/2023, 01/15/2022, 06/08/2019, Additional history exists Depression Screening 07/28/2024 07/28/2023, 02/26/2023, 12/31/2022, Additional history exists Fall Risk Assessment 07/28/2024 07/28/2023, 02/26/2023, 12/31/2022, Additional history exists Well Visit 65+ 07/28/2024 07/28/2023, 05/15/2022 Osteoporosis Screening-Bone Density Scan 11/26/2024 11/26/2022 Pneumococcal vaccine 65+ Completed 07/28/2023, 02/22 Procedures Procedure Name Priority Date/Time Associated Diagnosis Comments EGFR Routine 07/27/2024 11:40 AM SENIOR WINDOWS SYSTEMS ENGINEER Encounter for Medicare annual wellness exam DIFFERENTIAL AUTO Routine 07/27/2024 11:40 AM SENIOR WINDOWS SYSTEMS ENGINEER Encounter for Medicare annual wellness exam CBC WITH AUTO DIFFERENTIAL Routine 07/27/2024 11:40 AM SENIOR WINDOWS SYSTEMS ENGINEER Encounter for Medicare annual wellness exam COMPREHENSIVE METABOLIC PANEL Routine 07/27/2024 11:40 AM SENIOR WINDOWS SYSTEMS ENGINEER Encounter for Medicare annual wellness exam LIPID PANEL Routine 07/27/2024 11:40 AM SENIOR WINDOWS SYSTEMS ENGINEER Encounter for Medicare annual wellness exam SCREENING MAMMOGRAM BILATERAL W NAUN Schedule Routine, Read Routine (OP Routine) 06/28/2023 1:01 PM SENIOR WINDOWS SYSTEMS ENGINEER Encounter for screening mammogram for breast cancer DEXA AXIAL SKELETON BONE DENSITY 1 OR MORE SITES Schedule Routine, Read Routine (OP Routine) 11/26/2022 10:34 AM CDT Encounter for osteoporosis screening in asymptomatic postmenopausal patient from Last 3 Months or Most Recently Relevant to Health Maintenance Results * eGFR (07/27/2024 11:40 AM SENIOR WINDOWS SYSTEMS ENGINEER) eGFR 67 >=60 mL/min/1. 73 m2 Comment: [...] was last reviewed 2021. Testing performed by: [address], [address] Blood 07/27/2024 11:4 0 AM SENIOR WINDOWS SYSTEMS ENGINEER 07/27/2024 5:45 PM SENIOR WINDOWS SYSTEMS ENGINEER Chio Rico NP LAB BLOOD ORDERABLES Final Result [facility] ([facility]) [facility] [place] [address] * Differential, auto (07/27/2024 11:40 AM SENIOR WINDOWS SYSTEMS ENGINEER) Neutrophil abs 4.5 1.5 - 6.5 K/cumm Comment:Testing performed by : [address] [address] Imm gran abs 0.0 0.0 - 0.1 K/cumm [facility] ([facility]) Comment:Testing performed by : [address], [address] Lymphocyte abs 2.3 0.8 - 3.3 K/cumm [facility] ([facility]) Comment:Testing performed by : [address], [address] Monocyte abs 0.6 0.2 - 0.8 K/cumm [facility] ([facility]) Comment:Testing performed by : [address], [address] Eosinophil abs 0.2 0.0 - 0.5 K/cumm [facility] ([facility]) Comment:Testing performed by : [address], [address] Basophil abs 0.1 0.0 - 0.1 K/cumm [facility] ([facility]) Comment:Testing performed by : [address], [address] Neutrophil pct 59.5 % [facility] ([facility]) Comment: Interpretive Data Percent cell count reference ranges are not reported, since discordance with absolute values may lead to misinterpretation of CBC data. Current Interpretive Data was last revised on 2017. Testing performed by: [facility], [address], [place]., [address] Imm gran pct 0.3 % [facility] ([facility]) Comment: Interpretive Data Percent cell count reference ranges are not reported, since discordance with absolute values may lead to misinterpretation of CBC data. Current Interpretive Data was last revised on 2017. Testing performed by: [facility], [address] [place] [address]., [address] Lymphocyte pct 29.7 % [facility] ([facility]) Comment: Interpretive Data Percent cell count reference ranges are not reported, since discordance with absolute values may lead to misinterpretation of CBC data. Current Interpretive Data was last revised on 2017. Testing performed by: [facility], [address] [place] [address]., [address] Monocyte pct 7.6 % [facility] ([facility]) Comment: Interpretive Data Percent cell count reference ranges are not reported, since discordance with absolute values may lead to misinterpretation of CBC data. Current Interpretive Data was last revised on 2017. Testing performed by: [facility], [address] [place] [address]., [address] Eosinophil pct 2.2 % [facility] ([facility]) Comment: Interpretive Data Percent cell count reference ranges are not reported, since discordance with absolute values may lead to misinterpretation of CBC data. Current Interpretive Data was last revised on 2017. Testing performed by: [facility], [address] [place] [address]., [address] Basophil pct 0.7 % [facility] ([facility]) Comment: Interpretive Data Percent cell count reference ranges are not reported, since discordance with absolute values may lead to misinterpretation of CBC data. Current Interpretive Data was last revised on 2017. Testing performed by: [address] [address] Blood 07/27/2024 11:4 0 AM SENIOR WINDOWS SYSTEMS ENGINEER 07/27/2024 5:28 PM SENIOR WINDOWS SYSTEMS ENGINEER us Chio Rico NP LAB BLOOD ORDERABLES Final Result [facility] ([facility]) [facility] Department [place] [address] * CBC with auto differential (07/27/2024 11:40 AM SENIOR WINDOWS SYSTEMS ENGINEER) WBC 7.6 3.8 - 9.9 K/cumm Comment:Testing performed by : [address], [address] Hgb 14.1 11.9 - 15.5 g/dL [facility] ([facility]) Comment:Testing performed by : [address], [address] Hct 43.3 35.6 - 45.5 % [facility] ([facility]) Comment:Testing performed by : [address], [address] Plt 226 150 - 400 K/cumm [facility] ([facility]) Comment:Testing performed by : [address], [address] MPV 10.5 9.1 - 12.3 fL [facility] ([facility]) Comment:Testing performed by : [address], [address] RBC 4.52 3.90 - 5.20 M/cumm [facility] ([facility]) Comment:Testing performed by : [address], [address] MCV 95.8 81.3 - 96.4 fL [facility] ([facility]) Comment:Testing performed by : [address], [address] MCH 31.2 27.1 - 33.3 pg [facility] ([facility]) Comment:Testing performed by : [address], [address] MCHC 32.6 32.3 - 35.7 g/dL [facility] ([facility]) Comment:Testing performed by : [address], [address] RDW CV 12.3 11.1 - 14.9 % [facility] ([facility]) Comment:Testing performed by : [address], [address] RDW SD 42.5 35.7 - 48.1 fL [facility] ([facility]) Comment:Testing performed by : [address], [address] NRBC abs 0.00 0.00 - 0.01 K/cumm [facility] ([facility]) Comment:Testing performed by : [facility], [address] [place] [address]., [address] Blood 07/27/2024 11:4 0 AM SENIOR WINDOWS SYSTEMS ENGINEER 07/27/2024 5:28 PM SENIOR WINDOWS SYSTEMS ENGINEER Chio Rico NP LAB BLOOD ORDERABLES Final Result [facility] ([facility]) [facility] Department [place] [address] * Lipid panel (07/27/2024 11:40 AM SENIOR WINDOWS SYSTEMS ENGINEER) Cholesterol 186 30 - 199 mg/dL Comment: [...] last revised on 2018. Testing performed by: [facility], [address] [place] [address], [address] Triglycerides 131 <=149 mg/dL [facility] ([facility]) Comment: Interpretive Data [...] last revised on 2018. Testing performed by: [facility], [address] [place] [address]., [address] HDL 60 >=40 mg/dL [facility] ([facility]) Comment: Interpretive Data Ages < or [...] last revised on 2018. Testing performed by: [address] [address] LDL, calculated 103 <=129 mg/dL [facility] ([facility]) Comment: Interpretive Data [...] NCEP Expert Panel. Circulation 2004;110:227 3. Tahir Medellin al. ERICA Cardiol. 2020 October 21;5(5):540-548. doi: 10.1001/jamacardio.2020.0013 Current Interpretive Data was last revised on 2024. Testing performed by: [facility], [address] [place] [address]., [address] Non-HDL Cholesterol 126 mg/dL [facility] ([facility]) [...] last revised on 2018. Testing performed by: [facility], [address] [place] [address]., [address] Chol/HDL ratio 3 [facility] ([facility]) Comment:Testing performed by : [facility], [address] [place] [address]., [address] Blood 07/27/2024 11:4 0 AM SENIOR WINDOWS SYSTEMS ENGINEER 07/27/2024 5:28 PM SENIOR WINDOWS SYSTEMS ENGINEER Chio Rico NP LAB BLOOD ORDERABLES Final Result [facility] ([facility] Department [place] [address] * Comprehensive metabolic panel (07/27/2024 11:40 AM SENIOR WINDOWS SYSTEMS ENGINEER) Sodium 142 135 - 145 mmol/L Comment:Testing performed by : [address] [address] Potassium, pl 4.4 3.3 - 4.9 mmol/L [facility] ([facility]) Comment:Testing performed by : [address] [address] Chloride 102 97 - 110 mmol/L [facility] ([facility]) Comment:Testing performed by : [address] [address] CO2 27 22 - 32 mmol/L [facility] ([facility]) Comment:Testing performed by : [address] [address] Anion gap 13 2 - 15 mmol/L [facility] ([facility]) Comment:Testing performed by : [address] [address] BUN 15 6 - 25 mg/dL [facility] ([facility]) Comment:Testing performed by : [address] [address] Creatinine 0.92 0.60 - 1.10 mg/dL [facility] ([facility]) Comment:Testing performed by : [address] [address] Glucose 85 70 - 199 mg/dL [facility] ([facility]) Comment: Interpretive Data Fasting glucose >/= [...] classification and Diagnosis of Diabetes Diabetes Care 2021; 46: S19-S40. Current interpretive data was last revised 2022. Testing performed by: [address], [address] Calcium 9.7 8.5 - 10.3 mg/dL [facility] ([facility]) Comment:Testing performed by : [address], [address] Bilirubin, total 0.6 0.1 - 1.2 mg/dL [facility] ([facility]) Comment:Testing performed by : [address], [address] Protein, pl 7.0 6.5 - 8.5 g/dL [facility] ([facility]) Comment:Testing performed by : [address], [address] Albumin 4.2 3.5 - 5.0 g/dL [facility] ([facility]) Comment:Testing performed by : [address], [address] Alk phos 130 40 - 130 Units/L [facility] ([facility]) Comment:Testing performed by : [address], [address] ALT 20 7 - 45 Units/L [facility] ([facility]) Comment:Testing performed by : [address], [address] AST 30 10 - 45 Units/L [facility] ([facility]) Comment:Testing performed by : [address], [place]., [address] Blood 07/27/2024 11:4 0 AM SENIOR WINDOWS SYSTEMS ENGINEER 07/27/2024 5:28 PM SENIOR WINDOWS SYSTEMS ENGINEER us Chio Rico NP LAB BLOOD ORDERABLES Final Result [facility]) [facility] Department [place] [address] * Screening Mammogram Bilateral W Naun (06/28/2023 1:01 PM SENIOR WINDOWS SYSTEMS ENGINEER) Anatomical Region Laterality Modality Breast Bilateral Mammography 06/29/2023 4:54 PM SENIOR WINDOWS SYSTEMS ENGINEER Impressions 06/29/2023 4:54 PM SENIOR WINDOWS SYSTEMS ENGINEER There is no mammographic evidence of malignancy. A 1 year screening mammogram is recommended. BI-RADS: 1 - Negative. The patient has been or will be contacted. The patient will be entered into a reminder system with a target due date of 1 year for her next mammogram. Electronically signed by: CHERI ROBERT Narrative 06/29/2023 4:54 PM SENIOR WINDOWS SYSTEMS ENGINEER EXAMINATION: SCREENING MAMMOGRAM BILATERAL W NAUN ORDERING HEALTHCARE PROVIDER: CHIO RICO HISTORY: Routine screening mammography. COMPARISON: 01/15/2022, 06/08/2019. TECHNIQUE: CC and MLO views of both breasts were obtained with digital technique using digital breast tomosynthesis with C view. Computer aided detection was utilized. FINDINGS: DENSITY: The breasts have scattered areas of fibroglandular density. BREASTS: There is no new suspicious finding in either breast on mammogram. us Chio Rico NP IMG MAMMO PROCEDURES Final Result * Dexa Axial Skeleton Bone Density 1 or 2 Site (11/26/2022 10:34 AM CDT) Anatomical Region Laterality Modality Body N/A Other 11/27/2022 8:33 AM CDT Narrative 11/27/2022 8:34 AM CDT EXAM DESCRIPTION: DEXA AXIAL SKELETON BONE DENSITY 1 OR MORE SITES REASON FOR STUDY: 67 y/o year old F with given history of screening. Postmenopausal Laboratory Mechanical Technician/Model: [employer] SL ([id number]) CLINICAL INFORMATION: Current height: 62 inches Maximum height: 62 inches Weight: 183 pounds Risk factors: Postmenopausal COMPARISON: None available FINDINGS: AP LUMBAR SPINE L1-L4: Total BMD is 1.207 g/cm2 T-score is 1.5 LEFT HIP: Total BMD is 1.085 g/cm2 T-score is 1.2 Femoral neck BMD is 0.843 g/cm2 T-score is -0.1 FRAX: FRAX not reported due to T-scores of hip, femoral neck and/or spine being at or above -1.0 (Normal). IMPRESSION: Normal bone mass. REFERENCE: Bone mineral density: Normal (T-score above or = -1.0) Low bone mass (T-score between -1.0 and -2.5) replaces the previously used term osteopenia Osteoporosis (T-score = or below -2.5) Medical evaluation for secondary causes of low bone mineral density may be appropriate. FRAX is a World Health Organization validated fracture risk assessment tool that calculates a person's 10 year probability of a major osteoporosis related fracture and hip fracture. According to the National Osteoporosis Foundation guidelines, postmenopausal women and men age 50 or older with low bone mass and a 10 year probability of a major osteoporosis related fracture = or greater than 20% or a 10 year probability of a hip fracture = or greater than 3% should be considered for treatment. For further information, including treatment recommendations, please refer to the 2019 ISCD Official Positions (http://www.iscd.org) and the NOF's Clinician's Guide to Prevention and Treatment of Osteoporosis (http://www.nof.org/professionals/clinical-guidelines) THIS IS AN ELECTRONICALLY VERIFIED FINAL REPORT 11/27/2022 8:34 AM - Electronically signed by Andry Rois M.D. MF: MALLORY Report ID: [id number] Reading Location: [id number] Procedure Note Andry Rios MD - 11/27/2022 EXAM DESCRIPTION: DEXA AXIAL SKELETON BONE DENSITY 1 OR MORE SITES REASON FOR STUDY: 67 y/o year old F with given history of screening. Postmenopausal Laboratory Mechanical Technician/Model: [employer] SL ([id number]) CLINICAL INFORMATION: Current height: 62 inches Maximum height: 62 inches Weight: 183 pounds Risk factors: Postmenopausal COMPARISON: None available FINDINGS: AP LUMBAR SPINE L1-L4: Total BMD is 1.207 g/cm2 T-score is 1.5 LEFT HIP: Total BMD is 1.085 g/cm2 T-score is 1.2 Femoral neck BMD is 0.843 g/cm2 T-score is -0.1 FRAX: FRAX not reported due to T-scores of hip, femoral neck and/or spine beingat or above -1.0 (Normal). IMPRESSION: Normal bone mass. REFERENCE: Bone mineral density: Normal (T-score above or = -1.0) Low bone mass (T-score between -1.0 and -2.5) replaces thepreviously used term osteopenia Osteoporosis (T-score = or below -2.5) Medical evaluation for secondary causes of low bone mineral density may be appropriate. FRAX is a World Health Organization validated fracture risk assessmenttool that calculates a person's 10 year probability of a major osteoporosisrelated fracture and hip fracture. According to the National OsteoporosisFoundation guidelines, postmenopausal women and men age 50 or older with low bonemass and a 10 year probability of a major osteoporosis related fracture = or greater than 20% or a 10 year probability of a hip fracture = or greaterthan 3% should be considered for treatment. For further information, including treatment recommendations, please referto the 2019 ISCD Official Positions (http://www.iscd.org) and the NOF's Clinician's Guide to Prevention and Treatment of Osteoporosis (http://www.nof.org/professionals/clinical-guidelines) THIS IS AN ELECTRONICALLY VERIFIED FINAL REPORT 11/27/2022 8:34 AM - Electronically signed by Andry Rios M.D. MF: MALLORY Report ID: [id number] Reading Location: [place] [address] Chio Rico NP IMG DXA PROCEDURES Final R esult from Last 3 Months or Most Recently Relevant to Health Maintenance Insurance MEDICARE [employer] OOS MEDICARE [employer] ACCESS OOS Care Teams Medicine Assistant Relationship Specialty Start Date End Date Rivera Park MD [address] [place] [address] PCP - General Family Medicine 11/19/22
--- OUTSIDE RECORDS SUMMARY | 2024-07-28 14:57 | XMS_ITS | Referral Summary ---
Author Organization [facility] [address] [facility] lt Address [address] [place] [address] Care Team Providers Care Contracting Analyst Name Role Phone Rivera Park MD Primary Care Provider [phone] [phone] Encounters Date Type Department Care Team Description 07/28/2024 Nurse Triage [facility] [address] [place] [address] Rivera Park MD 07/27/2024 11:45 AM BRAZER PRODUCTION LINE Lab [facility] [address] [place] [address] Encounter for Medicare annual wellness exam 07/23/2024 Telephone [facility] [address] [place] [address] Evelina Perdomo MA Labs Requested for Appointment from Last 3 Months Allergies No known active allergies Medications Skyrizi [...] 10/2023 Assessment & Plan (07/28/2023 1:58 PM BRAZER PRODUCTION LINE): Visit preventive in nature. We reviewed medications, chronic conditions, risk factors, lifestyle recommendations. Reviewed immunization recommendations. Follow-up in 1 year for annual wellness. Class 1 obesity due to exces s calories with serious comorbidity and body mass index (BMI) of 32.0 to 32.9 in adult 07/28/2023 Assessment & Plan (07/28/2023 1:58 PM BRAZER PRODUCTION LINE): Reviewed lifestyle and exercise recommendations. Mild episode of recurrent major depressive disor olivia 07/28/2023 Assessment & Plan (07/28/2023 1:59 PM BRAZER PRODUCTION LINE): Reports well controlled on fluoxetine and BuSpar. Very rare alprazolam. No changes. Will continue to monitor. Mixed hyperlipidemia 12/17/2022 Assessment & Plan (07/28/2023 1:57 PM BRAZER PRODUCTION LINE): Last lipid panel reviewed. Will continue atorvastatin. Reviewed lifestyle recommendations. Will continue to monitor. Immunizations Name Administration Dates Next Due Influenza, Quadrivalent, Hig h Dose, Preservative Free, Intrr 02/26/2023,04/17/2022 Influenza, Quadrivalent, Rec ombinant, Egg Free, Preservative Free, Intramuscular 03/29/2020 Influenza, Quadrivalent, Spl it, Preservative Free, Intramuscular 04/07/2019,04/05/2018 Influenza, Unspecified 03/23/2021,03/23/2020 Pfizer Sars-Cov-2 Bivalent Vaccination (12+ YRS) 05/15/2021 Pneumococcal Conjugate PCV 13 03/21/2020 Pneumococcal Conjugate Pcv20 07/28/2023 ZOSTER Recombinant 03/21/2020 Social History Tobacco Use Types Packs/Day Years [...] on file Legal Sex Female 2:29 PM BRAZER PRODUCTION LINE Gender Identity Not on file Sexual Orientation Not on file Last Filed Vital Signs Vital Sign Reading Time Taken Comments Blood Pressure 147/82 01/13/2024 2:31 PM CDT Pulse 64 01/13/2024 2:31 PM CDT Temperature 36.8 C (98.3 F) 07/28/2023 1:25 PM BRAZER PRODUCTION LINE Respiratory Rate 18 07/28/2023 1:25 PM BRAZER PRODUCTION LINE Oxygen Saturation 96% 07/28/2023 1:25 PM BRAZER PRODUCTION LINE Inhaled Oxygen Concentration - - Weight 78.5 kg (173 lb) 01/13/2024 2:31 PM CDT Height 157.5 cm (5' 2 ) 01/13/2024 2:31 PM CDT Body Mass Index 31.64 01/13/2024 2:31 PM CDT Plan of Treatment Not on file Procedures Procedure Name Priority Date/Time Associated Diagnosis Comments EGFR Routine 07/27/2024 11:40 AM BRAZER PRODUCTION LINE Encounter for Medicare annual wellness exam DIFFERENTIAL AUTO Routine 07/27/2024 11:40 AM BRAZER PRODUCTION LINE Encounter for Medicare annual wellness exam CBC WITH AUTO DIFFERENTIAL Routine 07/27/2024 11:40 AM BRAZER PRODUCTION LINE Encounter for Medicare annual wellness exam COMPREHENSIVE METABOLIC PANEL Routine 07/27/2024 11:40 AM BRAZER PRODUCTION LINE Encounter for Medicare annual wellness exam LIPID PANEL Routine 07/27/2024 11:40 AM BRAZER PRODUCTION LINE Encounter for Medicare annual wellness exam SCREENING MAMMOGRAM BILATERAL W NAUN Schedule Routine, Read Routine (OP Routine) 06/28/2023 1:01 PM BRAZER PRODUCTION LINE Encounter for screening mammogram for breast cancer DEXA AXIAL SKELETON BONE DENSITY 1 OR MORE SITES Schedule Routine, Read Routine (OP Routine) 11/26/2022 10:34 AM CDT Encounter for osteoporosis screening in asymptomatic postmenopausal patient from Last 3 Months or Most Recently Relevant to Health Maintenance Results * eGFR (07/27/2024 11:40 AM BRAZER PRODUCTION LINE) eGFR 67 >=60 mL/min/1. 73 m2 Comment: [...] was last reviewed 2021. Testing performed by: [facility], [address] [place] [address], [address] Blood 07/27/2024 11:4 0 AM BRAZER PRODUCTION LINE 07/27/2024 5:45 PM BRAZER PRODUCTION LINE us Chio Rico MEDICAL BILLING INSTRUCTOR LAB BLOOD ORDERABLES Final Result [facility] ([place]) 1 [facility] [place] [address] * Differential, auto (07/27/2024 11:40 AM BRAZER PRODUCTION LINE) Neutrophil abs 4.5 1.5 - 6.5 K/cumm Comment:Testing performed by : [facility], [address] [place] [address]., [address] Imm gran abs 0.0 0.0 - 0.1 K/cumm [facility] ([place]) Comment:Testing performed by : [address] [address] Lymphocyte abs 2.3 0.8 - 3.3 K/cumm [facility] ([place]) Comment:Testing performed by : [address] [address] Monocyte abs 0.6 0.2 - 0.8 K/cumm [facility] ([place]) Comment:Testing performed by : [facility], [address] [place] [address]., [address] Eosinophil abs 0.2 0.0 - 0.5 K/cumm [facility] ([place]) Comment:Testing performed by : [address] [address] Basophil abs 0.1 0.0 - 0.1 K/cumm [facility] ([place]) Comment:Testing performed by : [address], [address] Neutrophil pct 59.5 % [facility] ([place]) Comment: Interpretive Data Percent cell count reference ranges are not reported, since discordance with absolute values may lead to misinterpretation of CBC data. Current Interpretive Data was last revised on 2017. Testing performed by: [facility], [address] [place] [address]., [address] Imm gran pct 0.3 % [facility] ([place]) Comment: Interpretive Data Percent cell count reference ranges are not reported, since discordance with absolute values may lead to misinterpretation of CBC data. Current Interpretive Data was last revised on 2017. Testing performed by: [address] [address] Lymphocyte pct 29.7 % [facility] ([place]) Comment: Interpretive Data Percent cell count reference ranges are not reported, since discordance with absolute values may lead to misinterpretation of CBC data. Current Interpretive Data was last revised on 2017. Testing performed by: [address] [address] Monocyte pct 7.6 % [facility] ([place]) Comment: Interpretive Data Percent cell count reference ranges are not reported, since discordance with absolute values may lead to misinterpretation of CBC data. Current Interpretive Data was last revised on 2017. Testing performed by: [address] [address] Eosinophil pct 2.2 % [facility] ([place]) Comment: Interpretive Data Percent cell count reference ranges are not reported, since discordance with absolute values may lead to misinterpretation of CBC data. Current Interpretive Data was last revised on 2017. Testing performed by: [address] [address] Basophil pct 0.7 % [facility] ([place]) Comment: Interpretive Data Percent cell count reference ranges are not reported, since discordance with absolute values may lead to misinterpretation of CBC data. Current Interpretive Data was last revised on 2017. Testing performed by: [address] [address] Blood 07/27/2024 11:4 0 AM BRAZER PRODUCTION LINE 07/27/2024 5:28 PM BRAZER PRODUCTION LINE Chio Rico MEDICAL BILLING INSTRUCTOR LAB BLOOD ORDERABLES Final Result [facility] ([place]) 1 [facility] [place] [address] * CBC with auto differential (07/27/2024 11:40 AM BRAZER PRODUCTION LINE) WBC 7.6 3.8 - 9.9 K/cumm Comment:Testing performed by : [facility], [address] [place] [address], [address] Hgb 14.1 11.9 - 15.5 g/dL [facility] ([place]) Comment:Testing performed by : [address], [address] Hct 43.3 35.6 - 45.5 % [facility] ([place]) Comment:Testing performed by : [address], [address] Plt 226 150 - 400 K/cumm [facility] ([place]) Comment:Testing performed by : [address], [address] MPV 10.5 9.1 - 12.3 fL [facility] ([place]) Comment:Testing performed by : [address], [address] RBC 4.52 3.90 - 5.20 M/cumm [facility] ([place]) Comment:Testing performed by : [address], [address] MCV 95.8 81.3 - 96.4 fL [facility] ([place]) Comment:Testing performed by : [address], [address] MCH 31.2 27.1 - 33.3 pg [facility] ([place]) Comment:Testing performed by : [address], [address] MCHC 32.6 32.3 - 35.7 g/dL [facility] ([place]) Comment:Testing performed by : [address], [address] RDW CV 12.3 11.1 - 14.9 % [facility] ([place]) Comment:Testing performed by : [facility], [address] [place] [address]., [address] RDW SD 42.5 35.7 - 48.1 fL [facility] ([place]) Comment:Testing performed by : [facility], [address] [place] [address]., [address] NRBC abs 0.00 0.00 - 0.01 K/cumm [facility] ([place]) Comment:Testing performed by : [facility], [address] [place] [address], [address] Blood 07/27/2024 11:4 0 AM BRAZER PRODUCTION LINE 07/27/2024 5:28 PM BRAZER PRODUCTION LINE Chio Rico NP LAB BLOOD ORDERABLES Final Result [facility] ([place]) 1 [facility] Department [place] [address] * Lipid panel (07/27/2024 11:40 AM BRAZER PRODUCTION LINE) Cholesterol 186 30 - 199 mg/dL Comment: [...] last revised on 2018. Testing performed by: [facility], [address] [place] [address], [address] Triglycerides 131 <=149 mg/dL [facility] ([place]) [...] last revised on 2018. Testing performed by: [facility], [address] [place] [address]., [address] HDL 60 >=40 mg/dL [facility] ([place]) [...] last revised on 2018. Testing performed by: [facility], [address] [place] [address]., [address] LDL, calculated 103 <=129 mg/dL [facility] [...] last revised on 2024. Testing performed by: [address] [address] Non-HDL Cholesterol 126 mg/dL [facility] ([place]) [...] last revised on 2018. Testing performed by: [address] [address] Chol/HDL ratio 3 [facility] Lorraine [facility] ([place]) Comment:Testing performed by : [address] [address] Blood 07/27/2024 11:4 0 AM BRAZER PRODUCTION LINE 07/27/2024 5:28 PM BRAZER PRODUCTION LINE us Chio Rico MEDICAL BILLING INSTRUCTOR LAB BLOOD ORDERABLES Final Result [facility] ([place]) 1 [facility] Department [place] [address] * Comprehensive metabolic panel (07/27/2024 11:40 AM BRAZER PRODUCTION LINE) Sodium 142 135 - 145 mmol/L Comment:Testing performed by : [address] [address] Potassium, pl 4.4 3.3 - 4.9 mmol/L [facility] ([place]) Comment:Testing performed by : [address] [address] Chloride 102 97 - 110 mmol/L [facility] ([place]) Comment:Testing performed by : [address] [address] CO2 27 22 - 32 mmol/L [facility] ([place]) Comment:Testing performed by : [address], [address] Anion gap 13 2 - 15 mmol/L [facility] ([place]) Comment:Testing performed by : [address] [address] BUN 15 6 - 25 mg/dL [facility] ([place]) Comment:Testing performed by : [address] [address] Creatinine 0.92 0.60 - 1.10 mg/dL [facility] ([place]) Comment:Testing performed by : [address], [address] Glucose 85 70 - 199 mg/dL [facility] [...] was last revised 2022. Testing performed by: [facility], [address] [place] [address]., [address] Calcium 9.7 8.5 - 10.3 mg/dL [facility] ([place]) Comment:Testing performed by : [address] [address] Bilirubin, total 0.6 0.1 - 1.2 mg/dL [facility] ([place]) Comment:Testing performed by : [address] [address] Protein, pl 7.0 6.5 - 8.5 g/dL [facility] ([place]) Comment:Testing performed by : [address] [address] Albumin 4.2 3.5 - 5.0 g/dL [facility] ([place]) Comment:Testing performed by : [address], [address] Alk phos 130 40 - 130 Units/L [facility] ([place]) Comment:Testing performed by : [address] [place] [address] ALT 20 7 - 45 Units/L [facility] ([place]) Comment:Testing performed by : [facility], [address] [place] [address]., [address] AST 30 10 - 45 Units/L [facility] ([place]) Comment:Testing performed by : [facility], [address] [place] [address]., [address] Blood 07/27/2024 11:4 0 AM BRAZER PRODUCTION LINE 07/27/2024 5:28 PM BRAZER PRODUCTION LINE us Chio Rico NP LAB BLOOD ORDERABLES Final Result [facility] ([place]) 1 [facility] Department [place] [address] * Screening Mammogram Bilateral W Naun (06/28/2023 1:01 PM BRAZER PRODUCTION LINE) Anatomical Region Laterality Modality Breast Bilateral Mammography 06/29/2023 4:54 PM BRAZER PRODUCTION LINE Impressions 06/29/2023 4:54 PM BRAZER PRODUCTION LINE There is no mammographic evidence of malignancy. A 1 year screening mammogram is recommended. BI-RADS: 1 - Negative. The patient has been or will be contacted. The patient will be entered into a reminder system with a target due date of 1 year for her next mammogram. Electronically signed by: CHERI ROBERT Narrative 06/29/2023 4:54 PM BRAZER PRODUCTION LINE EXAMINATION: SCREENING MAMMOGRAM BILATERAL W NAUN ORDERING [...] F with given history of screening. Postmenopausal Development Educator/Model: [employer] (S/N [id number]) CLINICAL INFORMATION: Current height: 62 inches Maximum [...] Andry Rois M.D. MF: MALLORY Report ID: [id number] Reading Location: [place] [address] Procedure Note Andry Rios MD - 11/27/2022 EXAM DESCRIPTION: DEXA AXIAL SKELETON BONE DENSITY 1 OR MORE SITES REASON FOR STUDY: 67 y/o year old F with given history of screening. Postmenopausal Development Educator/Model: [employer] SL (S/N [id number]) CLINICAL INFORMATION: Current height: 62 inches Maximum [...] Andry Rios M.D. MF: MALLORY Report ID: [id number] Reading Location: [place] [address] Chio Rico NP IMG DXA PROCEDURES Final R esult from Last 3 Months or Most Recently Relevant to Health Maintenance Insurance MEDICARE [facility] MEDICARE [facility] Address: [address] [place] [phone] [facility] OOS Care Teams Contracting Analyst Relationship Specialty Start Date End Date Rivera Park MD [address] [place] [address] PCP - General Family Medicine 11/19/22
--- OUTSIDE RECORDS SUMMARY | 2024-07-28 14:57 | XMS_ITS | Clinical Summary ---
Author Organization [facility] Address [address] [place] [address] Care Team Providers Care Nutrition Intern Name Role Phone Unavailable Primary Care Provider Unavailabl e Source Comments [facility],non-owned Affiliates and Associated Physician Practices is amultiple site organization consisting of ambulatory clinics and hospital sitesin [place], [place], [place] and [place]. This disclosure is being madepursuant to the Care Everywhere program and may not contain all information available regarding this patient. Last updated 18.[facility] [employer] Social History Tobacco Use Types Packs/Day Years Used Date Smoking Tobacco: Never Assessed Sex and Gender Information Value Date Recorded Sex Assigned at Not on file Gender Identity Not on file Sexual Orientation Not on file Plan of Treatment Health Maintenance Due Date Last Done Comments BONE DENSITY TESTING 1955 COLOGUARD (AGES 45-75) - COL ON CA SCREENING 1955 COLON MONITORING 1955 COLONOSCOPY - COLON CA SCREENING 1955 CT COLONOGRAPHY - COLON CA SCREENING 1955 Colorectal Cancer Screening 1955 FIT - COLON CA SCREENING 1955 FLEX SIG - COLON CA SCREENING 1955 LIPID TESTING 1955 MAMMOGRAM 1955 MEDICARE AWV 12 MONTHS 1955 HEPATITIS C SCREENING 02/07/1973 DTAP/TDAP/TD VACCINES (1 - Tdap) 1974 PNEUMOCOCCAL VACCINE 50+ (1 of 1 - PCV) 2005 ZOSTER VACCINE (1 of 2) 2005 COVID-19 VACCINE ( - 2023-2 5 season) 2024 INFLUENZA VACCINE (#1) 2024 DEPRESSION SCREENING 06/23/2024 Respiratory Syncytial Virus (RSV) Vaccine Pt: or over 60 yrs (1 - 1-dose 75+ series) 2030 HEPATITIS B VACCINE Aged Out No longe r eligible based on patient's age to complete this topic HIB VACCINE Aged Out No longer eligi ble based on patient's age to complete this topic HPV VACCINE Aged Out No longer eligi ble based on patient's age to complete this topic MENINGOCOCCAL (Group B) VACCINE Aged Out No longer eligible based on patient's age to complete this topic MENINGOCOCCAL VACCINE Aged Out No modesta kaye eligible based on patient's age to complete this topic
--- OUTSIDE RECORDS SUMMARY | 2024-07-28 14:57 | XMS_ITS | Encounter Summary ---
Author Organization [facility] Address [address] [place] [address] Care Team Providers Care Roll Tube Setter Name Role Phone Rivera Park MD Primary Care Provider [phone] Reason for Visit * Reason Onset Date Comments Cough 07/28/2024 Encounter Details Date Type Department Care Team (Late st Contact Info) Description 07/28/2024 Nurse Triage [facility] [place] [address] [place] [address] Rivera Park MD [address] [address] Social History Tobacco Use Types Packs/Day Years [...] on file Legal Sex Female 2:29 PM ORACLE HRMS CONSULTANT Gender Identity Not on file Sexual Orientation Not on file documented as of this encounter Miscellaneous Notes * Telephone Encounter - Court Osorio RN - 07/28/2024 12:52 PM CST Patient called with C/O cough, fever (102) which started yesterday. C/O chest pain and SOB. When she gets up she is dizzy. She has taken Mucinex and Ibuprofen. She tested negative for COVID. No appt available in the office. No appt available in [facility] Advised patient to go to Care Advice Given: Drink plenty of water, have someone drive you Educated patient to call back if worsens, new symptoms develop or has further questions/concerns. Reason for Disposition MILD difficulty breathing (e.g., minimal/no SOB at rest, SOB with walking, pulse <100) and stillpresent when not coughing Protocols used: Qbeyo-Bkysl-TR LE HRMS CONSULTANT * Telephone Encounter - Court Osorio RN - 07/28/2024 12:46 PM CST Regarding: eally bad cough and a 102# ----- Message from Marisa Mukherjee sent at 07/28/2024 11:57 AM ORACLE HRMS CONSULTANT ----- Symptom Based Call Chief Complaint(s): really bad cough and a 102# Duration: yesterday What type of symptom(s) is the patient experiencing? Non-Emergent. Is this a new or reoccurring symptom(s)? new What have you tried to help your symptom(s)? [place] Ib profen Why was appointment not scheduled? Appointment availability did not meet the patient's need. Additional Comments: Patient has a terrible cough, she has been running a fever of 102#. She just feels really bad. Does message need to be routed? Yes-Action Needed LE HRMS CONSULTANT documented in this encounter Plan of Treatment Not on file documented as of this encounter Visit Diagnoses Not on filedocumented in this encounter Care Teams Roll Tube Setter Relationship Specialty Start Date [place] [address] PCP - General Family Medicine 11/19/22 documented as of this encounter
--- OUTSIDE RECORDS SUMMARY | 2024-07-28 14:57 | XMS_ITS | Encounter Summary ---
Author Organization [facility] Address [address] [place] [address] Care Team Providers Care Pulper Operator Name Role Phone Unavailable Primary Care Provider Unavailabl e Encounter Details Date Type Department Care Team (Late st Contact Info) Description 06/27/2020 Lab Requisition [facility] [address] [place] [id number] Dimitris Artis MD [address] [address] Social History Tobacco Use Types Packs/Day Years Used Date Smoking Tobacco: Never Assessed Sex and Gender Information Value Date Recorded Sex Assigned at Not on file Gender Identity Not on file Sexual Orientation Not on file documented as of this encounter Plan of Treatment Not on file documented as of this encounter Procedures Procedure Name Priority Date/Time Associated Diagnosis Comments DERMATOPATHOLOGY Routine 06/26/2020 12:0 0 AM RN UROLOGY documented in this encounter Results * DERMATOPATHOLOGY (06/26/2020 12:00 AM RN UROLOGY) Case Report Dermatopathology Report Case: [id number] Authorizing Provider: Dimitris Artis MD Collected: 06/26/2020 12:00 AM Ordering Location: [facility] Received: 06/27/2020 02:39 PM Pathologist: Debra Gold MD Specimens: A) - Skin, left upper arm superior B) - Skin, left upper arm inferior 2:36 PM RN UROLOGY DERMATOPATHOLOGY LABORATORY Final Diagnosis Specimen A. 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 SKIN, left upper arm inferior: PRURIGO NODULARIS (L28.1) 1 2:36 PM RN UROLOGY DERMATOPATHOLOGY LABORATORY Clinical History A: Prurigo vs SK vs SCCA. Path # [id number]. B: Prurigo vs SK vs SCCA. Path # [id number]. 2:36 PM [facility] DERMATOPATHOLOGY LABORATORY Gross Description Specimen A: Received is one formalin filled container labeled with the patient's name and designated left upper arm superior. The specimen consists of a shave biopsy measuring [id number]. Jar 0. Specimen B: Received is one formalin filled container labeled with the patient's name and designated left upper arm inferior. The specimen consists of a shave biopsy measuring [id number]. Jar 0. 1 2:36 PM [facility] DERMATOPATHOLOGY LABORATORY Microscopic Description Specimen A. SKIN, [...] superficial perivascular lymphohistiocytic infiltrate. 1 2:36 PM [facility] DERMATOPATHOLOGY LABORATORY Disclaimer An external and internal positive and negative controls are appropriate for the histochemical, immunohistochemical and immunofluorescence stain(s) in this case (if any), except where stated explicitly. The performance characteristics of the stain(s) cited in this report were developed and its performance characteristic determined by the Dermatopathology Laboratory at [facility], directed by Dr. Zina Mohan. These tests need not be, and therefore are not, approved by the [place] Food and Drug Administration. The tests are used for clinical purposes. Billing Codes Specimen Charges Stain Charges 60485 32489 1 1 1 2:36 PM [facility] DERMATOPATHOLOGY LABORATORY Embedded Images 2:36 PM [facility]ERMATOPATHOLOGY [facility]OR[facility]ORY Pathology/Cytology TISSUE SPECIMEN FROM SKIN / Unknown 06/26/2020 06/27/2020 2:39 PM RN UROLOGY Miscellaneous samples (specimen) TISSUE SPECIMEN FROM SKIN / Unknown 06/26/2020 06/27/2020 2:39 PM RN UROLOGY Dimitris Artis MD LAB - PATHOLOGY/CYTO LOGY ORDERABLES DERMATOPATHOLOGY LABORATORY [facility] - Department of Dermatology [facility] [address] [place] [address], [address] [phone] documented in this encounter Visit Diagnoses Not on filedocumented in this encounter
--- OUTSIDE RECORDS SUMMARY | 2024-07-28 14:57 | XMS_ITS | Referral Summary ---
Author Organization [facility] Address [address] [place] [address] Care Team Providers Care Diet Tech Name Role Phone Unavailable Primary Care Provider Unavailabl e Source Comments [facility],non-owned Affiliates and Associated Physician Practices is amultiple site organization consisting of ambulatory clinics and hospital sitesin [place], [place], [place] and [place]. This disclosure is being madepursuant to the Care Everywhere program and may not contain all information available regarding this patient. Last updated 18.[facility] [employer] Social History Tobacco Use Types Packs/Day Years Used Date Smoking Tobacco: Never Assessed Sex and Gender Information Value Date Recorded Sex Assigned at Not on file Gender Identity Not on file Sexual Orientation Not on file Plan of Treatment Not on file
--- OUTSIDE RECORDS SUMMARY | 2024-07-28 15:01 | XMS_ITS | Continuity of Care Document ---
Author Organization [facility] Address [address] [place] [id number] Phone Care Team Providers Care Birdcage Assembler Name Role Phone Shila Berg Unavailable Unavailable [...] Diagnoses Date Provider Providers Copied on Encounter Adnry Mesisna, [address] [place], [place], [id number] , tel:[phone] Andry Messina MD decreased vision (chief complaint) blurry vision (chief complaint) PresbyopiaHordeolum internum Aug- 7[address] [place], [place], [id number] , [place]. tel:[phone] Referring Provider: Bobo Adler, [address] [facility], [place], [address]. tel:[phone] Family History Family Member Type Diagnosis Age At Onset Father Problem (finding) Cataracts Mother Problem (finding) Cancer Father Problem (finding) Diabetes mellitus Mother Problem (finding) Macular Degeneration Payers Payer name Insurance type Covered libertarian ID Authoriza tion(s) No Information Social History [...]
--- NOTE | 2024-07-28 16:07 | ED_ITS ---
HPI - URI/Sore Throat General Chief Complaint: Upper Respiratory Infection Stated Complaint: Cough/Headache Time Seen by Provider: 07/28/24 16:00 Source: patient, RN notes reviewed and old records reviewed Mode of arrival: ambulatory Limitations: no limitations History of Present Illness HPI Narrative: 69 year old female who presents to [facility] care with complaints of cough, fevers up to 102F, body aches, chills, headache since yesterday. Patient reports that she has been taking Ibuprofen for her symptoms. Pateint reports that cough is acute and frequent, denies any sore throat or any ear pain. MD elicited complaint: fever, cough and other (body aches and headaches) Onset (ago): day(s) (2 of symptoms) Severity: moderate Able to tolerate fluids by mouth: Yes Treatments prior to arrival: ibuprofen Related Data Home Medications ?Medication ?Instructions ?Recorded ?Confirmed ?Last Taken ?Type atorvastatin 40 mg tablet 40 mg PO DAILY 05/10/19 04/27/23 Unknown History cholecalciferol (vitamin D3) 25 2,000 unit PO DAILY 05/10/19 04/27/23 Unknown History mcg (1,000 unit) capsule fluoxetine 20 mg capsule 20 mg PO DAILY 05/10/19 04/27/23 Unknown History aspirin 81 mg tablet,delayed 81 mg PO DAILY 08/02/20 04/27/23 Unknown History release (Adult Low Dose Aspirin) buspirone 5 mg tablet mg 07/28/24 Unknown History metoprolol succinate 50 mg mg PO 07/28/24 Unknown History tablet,extended release 24 hr suvorexant 10 mg tablet (Belsomra) mg PO 07/28/24 Unknown History Allergies Allergy/AdvReac Type Severity Reaction Status Date / Time No Known Allergies Allergy Verified 07/28/24 15:25 Review of Systems Review of Systems: CONSTITUTIONAL: reports malaise, chills, sweats, or fever. EYES: Denies visual changes, redness, or discharge. ENT: Reports rhinorrhea, congestion, no sinus pain, no otalgia and no sore throat. CARDIOVASCULAR: Denies chest pain, palpitations, or edema. RESPIRATORY: Reports cough.? Denies dyspnea. GASTROINTESTINAL: Denies abdominal pain, nausea, vomiting, diarrhea SKIN: Denies rash or itching. MUSCULOSKELETAL: reports myalgia. NEUROLOGIC: Reports headache. All systems reviewed & are unremarkable except as noted in HPI and below PMFSH Past Medical History Medical History Heart palpitations Anxiety and depression High cholesterol Psoriasis Surgical History Surgical History History of dilatation and curettage Tubal ligation status History of tonsillectomy History of cholecystectomy History of hysterectomy Family History Family History Mother Family history of chronic obstructive pulmonary disease Family history of malignant neoplasm of breast in first degree relative Sibling Family history of lung cancer Social History Social History Smoking status: Never smoker Substance use: never Gender identity (if verbalized by the patient): Female Spiritual care concerns: No Comments At time of signature, agree with nursing past medical, surgical, social and family history. There is no relevant family history pertinent to the presenting complaint Exam Narrative: GENERAL: Well-appearing, well-nourished, and in no acute distress. HEAD: Normocephalic EYES: PERRLA, conjunctivae clear ENT: Nares clear, turbinates edematous and erythematous, clear discharge. Mucous membranes moist. TM pearly cochran with dull light reflex bilaterally; no tragal tenderness. Oropharynx erythematous without lesions. Tonsils not present and throat without exudate, no drooling, no hoarseness, no trismus, uvula midline.post nasal drainage NECK: Supple. No lymphadenopathy CHEST: Clear to auscultation, breath sounds equal. No wheezing, rhonchi, rales, or stridor. No respiratory distress, speaks in full sentences. Acute cough, SAO2 98% on room air HEART: Regular rate and rhythm. No murmur heard. SKIN: Warm, dry, no rash. NEURO: Alert and oriented x3. PSYCH: Normal mood and affect Course Course Emergency Course: Patient is aware of diagnosis, understands and agrees to treatment plan.? Anticipatory guidance given.? Patient agrees to follow-up as directed and is aware of reasons to seek care at the emergency department. Portions of this record may have been created with voice recognition software Level of Care: Express Care Visit Vital Signs Vital signs: Vital Signs Temperature 37.9 C H 07/28/24 14:14 Pulse Rate 90 07/28/24 14:14 Respiratory Rate 20 07/28/24 14:14 Blood Pressure 137/57 L 07/28/24 14:14 Pulse Oximetry 98 07/28/24 14:14 Oxygen Delivery Room Air 07/28/24 14:14 Temperature 37.9 C H 07/28/24 14:14 Pulse Rate 90 07/28/24 14:14 Respiratory Rate 20 07/28/24 14:14 Blood Pressure 137/57 L 07/28/24 14:14 Pulse Oximetry 98 07/28/24 14:14 Oxygen Delivery Room Air 07/28/24 14:14 Reviewed MDM - URI/Sore Throat MDM Narrative Medical decision making narrative: Differential diagnosis considered: Diaz virus, strep pharyngitis, allergic rhinitis, upper respiratory tract infection, sinusitis, rhinosinusitis, nasopharyngitis. viral pharyngitis, otitis media, otitis externa, pneumonia, bronchitis, viral cough syndrome, viral syndrome, and influenza.? Exam findings show no acute concerns or changes; patient is non-toxic appearing and is in no distress.? Patient is appropriate for outpatient treatment and follow-up. Differential Diagnosis Differential diagnosis: Likely upper respiratory infection, viral infection, influenza and other (COVID acute cough) Medical Records Attestation: I reviewed the patient's medical records. Lab Data Attestation: I reviewed the patient's lab results. Lab results narrative: Influenza A negative, Influenza B negative, COVID antigen negative Labs: Lab Results 07/28/24 Range/Units 16:13 POC Influenza A Ag Negative (Negative) POC Influenza B Ag Negative (Negative) POC SARS CoV-2 Ag Negative (Negative) Critical Care Time Critical Care Time Critical Care Time: No Discharge Plan Discharge Clinical Impression: Acute upper respiratory infection, Acute cough Patient Disposition: Home, Self-Care Condition: Stable Instructions: Antibiotic Form, Upper Respiratory Infection (ED) Additional Instructions: Increase fluids especially juices and water [id number] cough and cold medicine of your choice for your symptoms Prescription cough medicine as directed--caution drowsiness and no driving or alcohol Zyrtec or Claritin for sinus congestion and drainage Tylenol ibuprofen for any fever pain Steroids as directed--take with food heat to the face 20-30 minutes 4-6 times a day for pain Salt water gargles, throat lozenges or throat sprays as desired If your symptoms persist, change or worsen significantly before you can contact your personal physician then please, without delay, go to the emergency department for further evaluation. Follow-up with PCP in 7-10 days or sooner if needed Follow up with PCP soon in regards to your blood pressure which is elevated above threshold for referral. Blood pressure above 120/80 may indicate pre- hypertension. 137/57 Patient Language: Eritrean Prescriptions: New prednisone 20 mg tablet 20 mg PO BID Qty: 10 0RF codeine-guaifenesin 10-100 mg/5 mL liquid 5 ml PO Q6H PRN (Reason: cough) Qty: 200 0RF Rx Instructions: do not take sleeping pill if you take cough syrup No Action buspirone 5 mg tablet metoprolol succinate 50 mg tablet extended release 24 hr PO Belsomra 10 mg tablet PO aspirin [Adult Low Dose Aspirin] 81 mg tablet,delayed release (DR/EC) 81 mg PO DAILY fluoxetine 20 mg capsule 20 mg PO DAILY atorvastatin 40 mg tablet 40 mg PO DAILY cholecalciferol (vitamin D3) 1,000 unit capsule 2,000 unit PO DAILY Follow-up/Referrals: Jacky,Blanca Irby [employer] LOAN OFFICER [Primary Care Provider] - Time of Disposition: 16:50 Quality [place] Coma Scale Eyes: Open Verbal: Oriented and Alert Motor: Follows Commands [place] Coma Total Score: 15
[2024-07-28 16:16] LABS: EDCOVIDSCREEN Negative (Negative); EDINFLUASCREEN Negative (Negative); EDINFLUBSCREEN Negative (Negative)
== END 2024-07-28 17:00 | disposition home or self-care (01) ==
PROVIDERS: Emergency Provider Registered Nurse; PCP Nurse Practitioner Family
DX: J06.9 Acute upper respiratory infection, unspecified (principal); R05.1 Acute cough; Z79.899 Other long term (current) drug therapy; Z20.822 Contact with and (suspected) exposure to COVID-19
CPT/HCPCS: 71046; 87426; 87804; 99213; G0463